=== PATIENT | female | born 1985 | race Caucasian/White ===

== ENCOUNTER 2018-01-01 16:19 | Inpatient (IN) | payer BC ==
[2018-01-01] MEDS ORDERED: morphine 2 MG INJ IV (18:00)
[2018-01-01] MEDS: DEXTROSE 5%-0.9% NACL 1,000 ML IV (18:00)
[2018-01-01] MEDS ORDERED: ONDANSETRON 4 MG INJ IV ×2 (18:00→20:00)
[2018-01-01] MEDS ORDERED: ACETAMINOPHEN 325 MG TAB PO (18:00)
[2018-01-01] MEDS ORDERED: DOCUSATE SODIUM 100 MG CAP PO (20:00)
[2018-01-01] MEDS ORDERED: BISACODYL (EC) 5 MG TAB PO (20:00)
[2018-01-01] MEDS ORDERED: ACETAMINOPHEN 650 MG SUPP PR (20:00)
[2018-01-01] MEDS ORDERED: MAGNESIUM HYDROXIDE 30ML CUP PO (20:00)
[2018-01-01] MEDS ORDERED: NACL 0.9% 3 ML SYG IV (20:00)
[2018-01-01] MEDS: ACETAMINOPHEN 325 MG TAB PO (23:07)
[2018-01-02] MEDS: PANTOPRAZOLE 40 MG INJ IV (06:00)
[2018-01-02] MEDS: DEXTROSE 5%-0.9% NACL 1,000 ML IV (06:01)
[2018-01-02] MEDS ORDERED: LEVOFLOXACIN 500MG/D5W (PMX) 100 ML IVPB (13:00)
[2018-01-02] MEDS ORDERED: metroNIDAZOLE 500 MG/NS (PMX) 100 ML IVPB (14:00)
[2018-01-02] MEDS: metroNIDAZOLE 500 MG TAB PO (14:00)
[2018-01-02 14:04] LABS: ADD MAN DIFF? NO
[2018-01-02 14:08] LABS: BASOPHILS % 0.6 % (0.0-2.0); EOSINOPHILS % 0.3 % (0.0-7.0); HEMATOCRIT 40.9 % (37.0-47.0); HEMOGLOBIN 13.8 g/dl (12.0-16.0); LYMPHOCYTES # 2.6 10^3/ul (0.8-2.9); LYMPHOCYTES % 38.1 % (15.0-51.0); MEAN CORPUSCULAR HGB CONC 33.7 g/dl (32.0-37.0); MEAN CORPUSCULAR VOLUME 88.9 fl (82.0-101.0); MEAN PLATELET VOLUME 10.3 fl (7.4-10.4); MONOCYTE # 0.4 10^3/ul (0.3-0.9); MONOCYTES % 5.1 % (0.0-11.0); NEUTROPHIL # 3.8 10^3/ul (1.6-7.5); NEUTROPHILS % 55.8 % (39.0-77.0); PLATELET COUNT 301 10^3/UL (140-415); RED CELL DISTRIBUTION WIDTH 13.5 % (11.5-14.5)
[2018-01-02 14:08] LABS: WHITE BLOOD COUNT 6.9 10^3/ul (4.8-10.8)
[2018-01-02] MEDS ORDERED: morphine LIQ (10 MG/5 ML) CUP PO (14:30)
[2018-01-02 14:33] LABS: ALBUMIN/GLOBULIN RATIO 1.25; ANION GAP 15 (8-16)
[2018-01-02 14:44] LABS: ALANINE AMINOTRANSFERASE 340 IU/L (13-69); ALBUMIN 4.5 g/dl (3.3-4.9); ALKALINE PHOSPHATASE 111 IU/L (42-121); ASPARTATE AMINO TRANSFERASE 254 IU/L (15-46); BILIRUBIN,INDIRECT 2.1 mg/dl (0-1.1); BILIRUBIN,TOTAL 2.5 mg/dl (0.2-1.3); BLOOD UREA NITROGEN 10 mg/dl (7-20); CALCIUM 9.5 mg/dl (8.4-10.2); CARBON DIOXIDE 28 mmol/L (21-31); CHLORIDE 106 mmol/L (97-110); CREATININE 0.68 mg/dl (0.44-1.00); GLUCOSE 89 mg/dl (70-220); POTASSIUM 4.3 mmol/L (3.5-5.1); SODIUM 145 mmol/L (135-144); TOTAL PROTEIN 8.1 g/dl (6.1-8.1)
[2018-01-03] MEDS ORDERED: LEVOFLOXACIN 500 MG TAB PO (06:00)
== END 2018-01-02 17:20 | disposition left against medical advice (07) | DRG 446 ==
LOC: MS1 16:19
DX: K80.20 Calculus of gallbladder without cholecystitis without obstruction (principal); E80.6 Other disorders of bilirubin metabolism
CPT/HCPCS: 74181; 80053; 85025